=== PATIENT | male | born 1955 | race Caucasian/White ===

== ENCOUNTER 2018-07-17 17:14 | Inpatient (IN) ==
[2018-07-17 19:02] LABS: EOS# 0.03 X1000 (0.0-0.7); HEMATOCRIT 15.6 % (42.0-52.0); IMM GRAN# 0.01 X1000 (0.0-0.04); IMM GRAN% 0.3 % (0.0-0.5); LYMPH# 0.62 X1000 (1.2-3.4); LYMPH% 20.7 % (20.5-51.1); MCH 40.9 PG (27-31); MCHC 33.3 g/dL (33-37); MCV 122.8 FL (81-99); MONO# 0.53 X1000 (0.11-0.59); MONO% 17.7 % (1.7-9.3); MPV 9.3 FL (7.4-10.4); NEUT% 60.3 % (42.2-75.2); PLT 89 X1000 (130-400); RBC 1.27 XMIL (4.7-6.1); RDW 15.2 % (11.5-14.5); WBC 2.99 X1000 (4.8-10.8)
[2018-07-17 19:03] LABS: HEMOGLOBIN 5.2 g/dL (14.0-18.0)
[2018-07-17 19:16] LABS: AGAP 10; ALBUMIN 4.3 g/dL (3.5-5.0); ALKALINE PHOSPHATASE 41 U/L (32-122); BUN 10 mg/dL (8-22); CALCIUM 8.3 mg/dL (8.8-10.2); CHLORIDE 106 mmol/L (98-107); COSMO 276; CREATININE 0.7 mg/dL (0.7-1.2); ESTIMATED GFR > 60; GLUCOSE 94 mg/dL (70-104); GOT 24 U/L (10-34); GPT 38 U/L (10-44); SODIUM 139 mmol/L (136-145); TCO2 23 mmol/L (25-35); TOTAL PROTEIN 6.8 g/dL (6.3-8.3)
[2018-07-17 19:20] LABS: INR 1.07; PROTIME 14.5 Seconds (11.0-16.0); PTT 27.5 Seconds (22.3-41.8)
[2018-07-17 19:21] LABS: OCCULT BLOOD 1 NEGATIVE (NEGATIVE)
[2018-07-17] MEDS ORDERED: NS 1,000 ML IV ONE (20:40)
[2018-07-17 21:08] LABS: EOS 1 % (1-10); LYMPHS 25 % (21-51); MONO 7 % (1-9); SEGS 67 % (42-75)
[2018-07-17 21:09] LABS: ANISOCYTOSIS 1+; HYPOCHROM 1+; POIKILOCYTOSIS 1+; POLYCHROM 1+; SCHISTOCYTES 1+
--- NOTE | 2018-07-17 21:10 | PROVIDER DOCUMENTATION ---
This chart was entered by Kimberly Devine Scribe, acting as scribe for Yrn Chino CRNP. HPI-Abdominal Pain/GI Problem - General Chief Complaint: GI Bleed Stated Complaint: ABNORMAL LABS Time Seen by Provider: 07/17/18 18:37 Source: patient Allergies/Adverse Reactions: Patient Allergies Allergy/AdvReac Type Severity Reaction Status Date / Time No Known Allergies Allergy Verified 07/17/18 18:54 - History of Present Illness-ABD Nature of Presenting Problems: 63 yom presents w/ at bedside w/ cc pt had abnormal labs earlier today, hemoglobin was low, and referred to er. pt has had small amount of rectal bleeding. pt states he had colonoscopy and edg in mar and had small amount of rectal bleeding then too. pt has been sick on and off since april most recently w/gi bug he got from grandchild. pt has been weaker than normal but has no other symptoms. pt has hx of constipation. Review of Systems - Adult - REVIEW OF SYSTEMS - ADULT Constitutional: reports: see HPI, other (weakness) Eyes: reports: no symptoms reported. denies: blurred vision, double vision, eye pain Ears, Nose, Mouth & Throat: reports: no symptoms reported Cardiovascular: reports: no symptoms reported Respiratory: reports: no symptoms reported Gastrointestinal: reports: see HPI, constipation (hx). denies: abdominal pain, hematemesis, diarrhea, nausea, vomiting Genitourinary: reports: no symptoms reported Musculoskeletal: reports: no symptoms reported Integumentary: reports: no symptoms reported Neurological: reports: no symptoms reported Psychiatric: reports: no symptoms reported Endocrine: reports: no symptoms reported Hematologic/Lymphatic: reports: no symptoms reported Allergic/Immunologic: reports: no symptoms reported All Other Systems: Reviewed and Negative Past History - Adult - PAST MEDICAL HISTORY-ADULT Review of Records: reports: Old Records Reviewed, Nursing Assessment Review, Medications Reviewed, Social history reviewed & non-contributory. Major Childhood Illnesses: reports: denies history Cardiovascular: reports: denies history Respiratory: reports: denies history Gastrointestinal: reports: denies history Obstetrical/Gynecological: reports: denies history Genitourinary: reports: denies history Musculoskeletal: reports: denies history Neurological: reports: denies history Endocrine/Immune: reports: denies history Other Conditions: reports: denies history - PRIOR SURGERIES/PROCEDURES Surgical/Procedure History: reports: orthopedic (extremity) (ankle) - IMMUNIZATION STATUS Childhood Immunizations: See Nurse Assessment Flu Vaccine: See Nurse Assessment - FAMILY HISTORY Family History: reviewed, not pertinent - SOCIAL HISTORY Smoking: non-smoker Substance Use: none/never Physical Exam-General - PHYSICAL EXAM-ADULT Initial Vital Signs Reviewed: Yes - CONSTITUTIONAL General Appearance: appears well, alert, no apparent distress - EYES Eyes: PERRL/EOMI, pink conjunctivae - HEAD, EARS, NOSE, MOUTH & THROAT HENMT: normocephalic/atraumatic, moist mucous membranes, normal ENT inspection - NECK Neck: non-tender, full range of motion, supple, normal inspection - RESPIRATORY Respiratory: chest non-tender, lungs clear, normal breath sounds - CARDIOVASCULAR Cardiovascular: normal peripheral pulses, regular rate, rhythm - GASTROINTESTINAL (ABDOMEN) Abdominal Exam: normal bowel sounds, non tender, soft, no organomegaly, no pulsatile mass. negative: abdominal bruit, abnormal bowel sounds, distended - GENITOURINARY Rectal Exam: normal exam, normal rectal tone. negative: black stool, blood streaked stool, decreased tone, hemorrhoids, mass, prostate enlarged/nodule, tenderness Hemoccult Exam: heme negative stool - LYMPHATIC Lymphatic: no adenopathy - MUSCULOSKELETAL Back Exam: normal inspection, no CVA tenderness, no vertebral tenderness Extremity: normal range of motion, non-tender, normal inspection Peripheral Pulses: radial (R): 2+, radial (L): 2+ - SKIN Integumentary: normal color, normal turgor, warm/dry - NEUROLOGIC Neurologic: grossly normal, no motor/sensory deficits - PSYCHIATRIC Psych/Mental Status: normal mood/affect, normal thought content, normal thought process, oriented x 3 Progress - PLAN OF CARE/RESULTS Progress/Plan/Lab Results: Vital Signs - 8 hr 07/17/18 17:42 Temperature 98.5 F Pulse Rate 66 Respiratory Rate 16 Blood Pressure 117/51 O2 Sat by Pulse Oximetry 98 Orders Category Date Time Status CBC WITH DIFF [HEME] Stat Lab 07/17/18 18:40 Results CMP [COMPREHENSIVE METABOLIC PANEL] [CHEM] Stat Lab 07/17/18 18:40 Received OCCULT BLOOD SCREEN STOOL PL Stat Lab 07/17/18 18:28 Ordered PROTIME WITH INR [COAG] Stat Lab 07/17/18 18:40 Received PTT [COAG] Stat Lab 07/17/18 18:40 Received TYPE & SCREEN [BBK] Stat Lab 07/17/18 18:40 Received Result Diagrams: 07/17/18 18:40 07/17/18 18:40 - CONSULTS/PCP/HOSPITALIST Notification #1 *Consult/PCP/Hospitalist*: Dr. Roland Time Discussed: 21:09 Reason/Comments: admit for transfusion Consult Disposition: Admit Departure - Departure Date of Disposition Decision: 07/17/18 Time of Disposition Decision: 21:07 DIAGNOSIS: Anemia, Weakness Disposition: ADMITTED INPATIENT 09 Certified Medical Emergency: Emergent Condition: Stable Referrals and Follow-Ups: Demetris Navarro MD [Primary Care Provider] - - Critical Care Note This patient required my direct & personal management of CC.: No Attestation - Physician/ MARGARET Attestation Patient care was provided by Advanced Practice Provider:: Yes Advanced Practice Provider:: Yrn Chino Advanced Practice Provider documentation review:: The Mid-level provider documentation, treatment plan and medical decision making was reviewed by the physician who agrees with all treatment and medical decision making by the MLP. The physician spent face to face time with patient:: No Advanced Practice Provider documentation review:: Supervising physician onsite and consulted in the evaluation and care of this patient. The physician did not have a face to face encounter with the patient. This chart was documented by the indicated scribe, (Kimberly Devine Scribe) and accurately reflects the services I performed and decisions made by me, Yrn Chino CRNP, as attested by the provider's signature.
[2018-07-17] MEDS ORDERED: ZOFRAN IV PRN (22:24)
[2018-07-17] MEDS ORDERED: TYLENOL PO PRN (22:24)
[2018-07-18 07:50] LABS: HEMATOCRIT 19.1 % (42.0-52.0); HEMOGLOBIN 6.4 g/dL (14.0-18.0); MCH 36.4 PG (27-31); MCHC 33.5 g/dL (33-37); MCV 108.5 FL (81-99); MPV 9.2 FL (7.4-10.4); PLT 76 X1000 (130-400); RBC 1.76 XMIL (4.7-6.1); WBC 2.88 X1000 (4.8-10.8)
[2018-07-18 08:02] LABS: AGAP 10; ALBUMIN 3.9 g/dL (3.5-5.0); ALKALINE PHOSPHATASE 33 U/L (32-122); BUN 8 mg/dL (8-22); CALCIUM 8.1 mg/dL (8.8-10.2); CHLORIDE 110 mmol/L (98-107); COSMO 283; CREATININE 0.7 mg/dL (0.7-1.2); ESTIMATED GFR > 60; GLUCOSE 97 mg/dL (70-104); GOT 25 U/L (10-34); GPT 38 U/L (10-44); POTASSIUM 4.4 mmol/L (3.5-5.1); SODIUM 143 mmol/L (136-145); TCO2 23 mmol/L (25-35); TOTAL PROTEIN 6.2 g/dL (6.3-8.3)
[2018-07-18 11:47] LABS: OCCULT BLOOD 1 NEGATIVE (NEGATIVE)
--- NOTE | 2018-07-18 14:34 | HISTORY AND PHYSICAL ---
CHIEF COMPLAINT: Abnormal labs. HISTORY OF PRESENT ILLNESS: This is a 63-year-old gentleman who presented to the emergency room after having abnormal labs return that were drawn by his primary care physician. He was found to have a hemoglobin of 5.2 and a hematocrit of 15.6, along with platelets of 89,000. The patient states that he has had a GI bug off and on since April. The patient stated that he had an EGD and colonoscopy in early March that reportedly found no reason for a rectal bleed. He stated that at the time these tests were done, he did have a small amount of rectal bleeding. He does state that he has had nausea, vomiting, and diarrhea off and on since April. He feels that he got a GI bug from his grandchild. He does have a history of chronic constipation. He denied any syncope, dizziness, shortness of breath, chest pain, or palpitations. PAST MEDICAL HISTORY: Retinal hemorrhages. PAST SURGICAL HISTORY: Ankle surgery. SOCIAL HISTORY: He denies alcohol, tobacco, or illicit drug use. He is . ALLERGIES: No known drug allergies. HOME MEDICATIONS: He denies. REVIEW OF SYSTEMS: Discussed with patient with pertinent positives stated in the HPI. He denied any syncope, dizziness, chest pain, palpitations, shortness of breath, cough, fever, chills, any night sweats, recent weight loss or weight gain, any black or bloody vomitus or stools, any hematuria, dysuria, frequency, or urgency. PHYSICAL EXAMINATION: GENERAL: This is a 63-year-old gentleman who is sitting up in the bed, in no distress. VITAL SIGNS: Blood pressure is 122/56, heart rate of 63, respirations are 16, temperature is 98 degrees, with room air saturations 96 to 100 percent. EYES: Pupils equal, round, and react to light. EOMs are intact. Sclerae anicteric. HEENT: Head is normocephalic, atraumatic. Mucous membranes are moist. NECK: Supple. Trachea midline. CARDIOVASCULAR: Regular rate and rhythm. S1 and S2 are appreciated. He has no lower extremity edema. Calves are nontender bilateral with peripheral pulses palpable x4 extremities. PULMONARY: Breath sounds are clear with no increased work of breathing noted. Chest rises and falls symmetrically with respirations. Chest wall is nontender to palpation. GASTROINTESTINAL: Abdomen is soft, nontender, nondistended, with bowel sounds in all 4 quadrants. GENITOURINARY: He has no CVAT. No suprapubic tenderness. NEUROLOGIC: He is alert and oriented x3. SKIN: Warm and dry. LABS: WBC is 2.9, with a hemoglobin of 5.2, hematocrit 15.6, and platelets of 89,000. INR is 1.07. Sodium 139, potassium 4, BUN 10, creatinine 0.7, with a glucose of 94. Stool for occult blood was negative. ASSESSMENT AND PLAN: 1. Anemia. 2. Generalized weakness, most likely secondary to #1. 3. Thrombocytopenia. 4. History of chronic constipation. PLAN: The patient has been admitted to the medical-surgical floor. He was given two units of packed cells. Since admission, hemoglobin and hematocrit were 5.2 and 15.6 prior to transfusion. They are 6.4 and 19.1 after two units. We will transfuse another unit and recheck his labs. Platelets have decreased from 89,000 to 76,000. We will give platelets. Further treatments pending hospital course. Dictated by EARNEST Richardson for Joselito Roland MD cc: EARNEST Richardson MD
[2018-07-18 16:48] LABS: HEMATOCRIT 21.1 % (42.0-52.0); HEMOGLOBIN 7.3 g/dL (14.0-18.0); MCH 36.3 PG (27-31); MCHC 34.6 g/dL (33-37); MPV 9.4 FL (7.4-10.4); PLT 76 X1000 (130-400); RBC 2.01 XMIL (4.7-6.1); WBC 2.93 X1000 (4.8-10.8)
--- NOTE | 2018-07-19 01:18 | HISTORY AND PHYSICAL ---
ADDENDUM: Patient seen and examined by myself. Full note dictated and discussed with nurse practitioner. He presented to the hospital being told that his blood count was low. The patient denies any true GI bleed. In fact, his Hemoccult has been negative x2. He denies any blood in his stool, blood in his emesis. States that he has just been tired increasingly over the past several months. Currently, his platelets are low. He has panthrombocytopenia as well as leukopenia and anemia with a hemoglobin and hematocrit initially at 5 and 14. It went up to 7.1 and 21 after 3 units of blood. We will admit the patient to the hospital, type, cross and transfuse. We will check Hemoccult. If this becomes positive, he will need inpatient endoscopy. cc: Joselito Roland MD
[2018-07-19 07:17] LABS: HEMATOCRIT 22.3 % (42.0-52.0); HEMOGLOBIN 7.5 g/dL (14.0-18.0); MCH 35.2 PG (27-31); MCHC 33.6 g/dL (33-37); MCV 104.7 FL (81-99); PLT 73 X1000 (130-400); RBC 2.13 XMIL (4.7-6.1); WBC 3.08 X1000 (4.8-10.8)
[2018-07-19 08:21] LABS: AGAP 10; ALBUMIN 4.1 g/dL (3.5-5.0); ALKALINE PHOSPHATASE 38 U/L (32-122); BUN 8 mg/dL (8-22); CALCIUM 8.4 mg/dL (8.8-10.2); CHLORIDE 110 mmol/L (98-107); COSMO 285; CREATININE 0.7 mg/dL (0.7-1.2); ESTIMATED GFR > 60; GLUCOSE 101 mg/dL (70-104); GOT 26 U/L (10-34); GPT 39 U/L (10-44); MAGNESIUM 2.2 mg/dL (1.5-2.7); POTASSIUM 4.4 mmol/L (3.5-5.1); SODIUM 144 mmol/L (136-145); TCO2 24 mmol/L (25-35); TOTAL PROTEIN 6.6 g/dL (6.3-8.3)
[2018-07-19 08:30] LABS: IRON SATURATION 64 %; TIBC 224 ug/dL; TOTAL IRON 143 ug/dL (53-167); UNBOUND IRON 81 ug/dL (112-346)
[2018-07-19] MEDS ORDERED: NS 250 ML IV SCH (10:30)
[2018-07-19 13:44] VITALS: BP 137/77
[2018-07-19 14:27] LABS: EOS# 0.04 X1000 (0.0-0.7); EOS% 0.9 % (0.0-10.0); HEMATOCRIT 26.1 % (42.0-52.0); HEMOGLOBIN 8.9 g/dL (14.0-18.0); IMM GRAN# 0.01 X1000 (0.0-0.04); IMM GRAN% 0.2 % (0.0-0.5); LYMPH# 0.66 X1000 (1.2-3.4); LYMPH% 15.3 % (20.5-51.1); MCH 35.5 PG (27-31); MCHC 34.1 g/dL (33-37); MONO# 0.54 X1000 (0.11-0.59); MONO% 12.5 % (1.7-9.3); MPV 9.4 FL (7.4-10.4); NEUT# 3.06 X1000 (1.4-6.5); NEUT% 71.1 % (42.2-75.2); PLT 85 X1000 (130-400); RBC 2.51 XMIL (4.7-6.1); RDW 23.9 % (11.5-14.5); WBC 4.31 X1000 (4.8-10.8)
[2018-07-19 14:56] LABS: EOS 4 % (1-10); LYMPHS 18 % (21-51); MONO 16 % (1-9); SEGS 62 % (42-75)
[2018-07-19 14:57] LABS: ANISOCYTOSIS 2+; HYPOCHROM 2+; MICROCYTOSIS 2+; OVALOCYTES 1+; POIKILOCYTOSIS 1+
[2018-07-19 16:52] LABS: FERRITIN 1198 ng/mL (30-400)
--- NOTE | 2018-07-20 03:59 | DISCHARGE SUMMARY ---
ADMISSION DATE: 07/17/2018 DISCHARGE DATE: 07/19/2018 DISCHARGE DIAGNOSES: 1. Anemia. 2. Generalized weakness. 3. Thrombocytopenia. 4. History of chronic constipation. HOSPITAL COURSE: Mr. Jacobson presented to the emergency room after having been found to have a hemoglobin and hematocrit of 5 and 15, along with low platelets from his primary care physician. In the emergency room, he had a hemoglobin of 5.2, hematocrit of 15.6, with platelets of 89,000. He received 3 units of packed cells, had an hemoglobin and hematocrit of 7.5 in .3 this morning at 6 a.m. We did give a 4th unit of packed cells prior to discharge. He denied any hematemesis, black or bloody stools, and in fact, 2 stools have been negative for blood while in the hospital. He did undergo an EGD and colonoscopy per Dr. Peñaloza in March, which he stated were negative for any areas of bleeding. He did report having nausea, vomiting, and diarrhea off and on since April, feeling that it was a GI bug he got from his grandchildren. DISCHARGE VITAL SIGNS: Blood pressure is 128/67, heart rate of 65, respirations are 16, temperature is 97.5 degrees oral with room air saturation 100%. DISCHARGE PHYSICAL EXAMINATION: Cardiovascular: Regular rate and rhythm. S1 and S2 appreciated. He has no lower extremity edema with peripheral pulses palpable x4 extremities. Calves are nontender to palpation. Pulmonary: Breath sounds are clear. No increased work of breathing noted. Chest rises and falls symmetric with respiration. Chest wall is nontender to palpation. Gastrointestinal: Soft, nontender, nondistended with bowel sounds in all 4 quadrants. Neurologic: He is alert and oriented x3. Skin: Warm and dry. FOLLOWUP: 1. He needs to follow up with Dr. Peñaloza. He needs to call to schedule an appointment. 2. Dr. Cruz Gasca, an appointment will be made before the patient's discharge. 3. His primary care physician, Dr. Demetris Navarro as needed. He is being discharged home in stable condition with family members. The patient has been instructed to call to be seen sooner or return to the ER for any syncope, dizziness, chest pain, palpitations, any shortness of breath, cough, temperature greater than 101, any black or bloody vomitus or stools, or for any questions or concerns that he may have. This is a greater than 30 minute discharge. Dictated by EARNEST Richardson for Joselito Roland MD cc: EARNEST Richardson MD Naveen T. Lobo, MD
--- NOTE | 2018-07-20 17:29 | DISCHARGE SUMMARY ---
ADMISSION DATE: 07/17/2018 DISCHARGE DATE: 07/19/2018 ADDENDUM TO DISCHARGE SUMMARY: Patient seen and examined by myself. Full note dictated and discussed with nurse practitioner. Patient presented to the hospital, subsequently diagnosed with thrombocytopenia. Platelets remained stable around 72 to 76,000. His H H was quite low, in fact actually, it was probably lower than 5 after he was given IV fluids, he did require 4 units of transfusion to get his hemoglobin and hematocrit above 8. He will follow up outpatient with Dr. Gasca. cc: Joselito Roland MD
== END 2018-07-19 14:32 | disposition home or self-care (01) | DRG 810 ==
LOC: P.ED 17:14 → P.MEDSURG 21:54
PROVIDERS: ATTEND Family Medicine
CPT/HCPCS: 36430; 80053; 82270; 82607; 82728; 82746; 83540; 83550; 83735; 85025; 85027; 85610; 85730; 86850; 86900; 86901; 86920; 96360; 99285; J7030; J7050; P9016